=== PATIENT | male | born 1945 | race Caucasian/White ===

== ENCOUNTER 2019-09-03 16:59 | Emergency (ER) | payer MEDICARE ==
[~2019-09-03] VITALS: Ht 182.9 cm; Wt 66.4 kg
[2019-09-03] MEDS ORDERED: TAMS-13 PO (17:10)
[2019-09-03 19:20] VITALS: BP 120/64
== END 2019-09-03 20:17 | disposition home or self-care (01) ==
LOC: EMS 16:59
DX: H57.89 Other specified disorders of eye and adnexa (principal); Z88.0 Allergy status to penicillin; Z79.899 Other long term (current) drug therapy